=== PATIENT | male | born 1945 | race Caucasian/White ===

== ENCOUNTER 2021-07-20 15:22 | Outpatient (CLI) | payer MEDICARE, SELFPAY ==
--- NOTE | ~2021-07-20 | US_ITS ---
EXAMINATION: US renal BI EXAM DATE: 07/20/2021 15:55 INDICATION: N18.3 - Chronic kidney disease, stage 3 (moderate) CKD STAGE 3 . TECHNIQUE: Multiple grayscale and Doppler images of the kidneys were obtained (by a technologist who performed the scan) and subsequently reviewed. Comparison is made to prior examination from 08/29/2012 . FINDINGS: Right kidney: There is normal contour and echogenicity. It measures 10.2 x 4.6 x 4.3 centimeters. T here are no focal renal lesions identified. There is no hydronephrosis. Left kidney: There is normal contour and echogenicity. It measures 10.3 x 5.0 x 4.7 centimeters. Th ere are no focal renal lesions identified. There is no hydronephrosis. Bladder unremarkable. Prostate measures 4.7 x 4.1 x 4.7 cm, mild to moderately enlarged IMPRESSION: 1. Sonographically unremarkable kidneys. 2. Prostatomegaly. Reviewed, dictated and finalized at location B.
== END 2021-07-20 15:23 | disposition home or self-care (01) ==
LOC: ANHIMG 15:26
PROVIDERS: PCP Family Medicine; Visit Provider Family Medicine
DX: N18.30 Chronic kidney disease, stage 3 unspecified (principal); N40.0 Benign prostatic hyperplasia without lower urinary tract symptoms
CPT/HCPCS: 76775

== ENCOUNTER 2022-02-12 14:29 | Outpatient (CLI) | payer MEDICARE, SELFPAY ==
--- NOTE | ~2022-02-12 | XR_ITS ---
EXAMINATION: XR chest 2V DATE: 02/12/2022 14:49 INDICATION: Chronic cough. TECHNIQUE: Frontal and lateral views of the chest were obtained. COMPARISON: Chest 2 views 06/24/2015 FINDINGS: A calcified right lung nodule is consistent with old granulomatous disease. No pleural effu antonio or pneumothorax. The heart size is normal. There are changes of heart valve replacement. There i s a suture anchor overlying left shoulder. IMPRESSION: 1. No acute cardiopulmonary disease. Reviewed, dictated and finalized at location B.
== END 2022-02-12 14:30 | disposition home or self-care (01) ==
PROVIDERS: PCP Family Medicine; Visit Provider Physician Assistant Medical
DX: R05.3 Chronic cough (principal); Z95.2 Presence of prosthetic heart valve
CPT/HCPCS: 71046

== ENCOUNTER 2022-06-06 14:09 | Outpatient (CLI) | payer MEDICARE, SELFPAY | END 2022-06-06 14:10 | disposition home or self-care (01) | PROVIDERS: PCP Family Medicine; Visit Provider Internal Medicine Critical Care Medicine | DX: R05.3 Chronic cough (principal) | CPT/HCPCS: 87015; 87070; 87102; 87106; 87107; 87116; 87205; 87206 ==

== ENCOUNTER 2022-06-07 12:08 | Outpatient (CLI) | payer MEDICARE, SELFPAY | END 2022-06-07 12:09 | disposition home or self-care (01) | LOC: ANHLAB 12:11 | PROVIDERS: PCP Family Medicine; Visit Provider Internal Medicine Critical Care Medicine | DX: R05.3 Chronic cough (principal) | CPT/HCPCS: 87070; 87205 ==

== ENCOUNTER 2022-06-08 11:49 | Outpatient (CLI) | payer MEDICARE, SELFPAY | END 2022-06-08 11:50 | disposition home or self-care (01) | LOC: ANHLAB 11:52 | PROVIDERS: PCP Family Medicine; Visit Provider Internal Medicine Critical Care Medicine | DX: R05.3 Chronic cough (principal) | CPT/HCPCS: 87070; 87205 ==

== ENCOUNTER 2022-06-25 12:21 | Outpatient (CLI) | payer MEDICARE, SELFPAY ==
--- NOTE | 2022-06-25 14:36 | WPDPFTINT ---
PFT Procedure Performed PFT Procedure Performed Spirometry with Pre/Post Bronchodilator Plethysmography (Lung Vol) Diffusing Cap (DLCO) Flow Vol Loop PFT Interpretation This is a pulmonary function test with pre and post-bronchodilator spirometry, plethysmography and diffusing capacity. The test was performed and results interpreted in accordance with the 2019 and 2005 ATS/ERS Task Force guidelines respectively using the Global Lung Function Initiative-2012 reference equations. Patient demonstrated good effort and cooperation. Reproducibility criteria were met. The quality of the pre bronchodilator spirometry maneuver was Grade A and post bronchodilator spirometry maneuver was Grade A. Findings: Spirometry: The contour the inspiratory and expiratory flow tracing are normal. The pre bronchodilator FVC is 3.45 L, 90% predicted. The pre bronchodilator FEV1 is 2.64 L, 93% predicted. The pre bronchodilator FEV1: FVC ratio is 77%. The post bronchodilator FVC is 3.55 L, representing a 3% increase. The post bronchodilator FEV1 is 2.58 L, representing a 2% decrease. The post bronchodilator FEV1: FVC ratio 73%. Plethysmography: The total lung capacity is 6.64 L, 97% predicted. The functional residual capacity is 3.93 L, 107% predicted. The residual volume is 2.97 L, 116% predicted. Diffusing capacity: The diffusion capacity unadjusted for hemoglobin and carboxyhemoglobin is 17.3, 72% predicted. The diffusing capacity adjusted for alveolar volume is 3.34, 89% predicted. Impression: The spirometry is normal without evidence of an obstructive abnormality. There is no significant improvement after inhaling a single dose of albuterol. The lung volumes are normal. The diffusing capacity is normal. There are no prior studies for comparison
== END 2022-06-25 12:22 | disposition home or self-care (01) ==
PROVIDERS: PCP Family Medicine; Visit Provider Internal Medicine Critical Care Medicine
DX: R05.3 Chronic cough (principal)
CPT/HCPCS: 94060; 94726; 94729

== ENCOUNTER 2022-06-25 12:27 | Outpatient (CLI) | payer MEDICARE, SELFPAY ==
--- NOTE | ~2022-06-25 | CT_ITS ---
EXAMINATION:CT diagnostic chest wo con DATE: 06/25/2022 13:48 INDICATION: Chronic cough. TECHNIQUE: Computed tomography (CT) of the chest was performed without intravenous contrast. Automate d exposure control and iterative reconstruction technique were employed. The dose-length product (DLP ) was 192.25 mGy-cm. COMPARISON: Chest CT 03/18/2014 FINDINGS: There is mild scarring at the lung apices. Calcified right lung nodules and calcified right hilar and mediastinal lymph nodes are consistent with old granulomas disc disease. There is bronchie ctasis in lingula. There is a pneumatocele in right lower lobe. There is mild scarring in the lingula . There are peripheral septal thickening in the right middle lobe and right lower lobe. There is a st able 8 mm nodule in right middle lobe, likely benign. There are a few scattered nodules in the lungs measuring up to 4 mm, likely benign. No honeycombing. No pleural effusion. The heart size is normal. There are changes of aortic valve replacement. There are coronary artery calcifications. No pericardi al effusion. There is ectasia of ascending aorta measuring 4.0 cm. Calcifications in the spleen are c onsistent with old granulomatous disease. There is mild thoracic spondylosis. IMPRESSION: 1. Mild chronic lung disease in a pattern of usual interstitial pneumonia (UIP) versus nonspecific in terstitial pneumonia (NSIP). Reviewed, dictated and finalized at location A. IMPRESSION: 1. Mild chronic lung disease in a pattern of usual interstitial pneumonia (UIP) versus nonspecific interstitial pneumonia (NSIP).
== END 2022-06-25 12:28 | disposition home or self-care (01) ==
LOC: ANHIMG 12:29
PROVIDERS: PCP Family Medicine; Visit Provider Internal Medicine Critical Care Medicine
DX: R05.3 Chronic cough (principal); J98.4 Other disorders of lung
CPT/HCPCS: 71250; 94060; 94726; 94729

== ENCOUNTER 2022-08-14 08:45 | Outpatient (CLI) | payer MEDICARE, SELFPAY ==
--- NOTE | ~2022-08-14 | XR_ITS ---
EXAMINATION: XR barium swallow modified DATE: 08/14/2022 10:39 INDICATION: Chronic cough TECHNIQUE: Modified barium esophagram was performed by myself who administered fluoroscopy, in conju nction with speech pathologist who administered barium in varying consistencies as per speech patholo gist documentation. This was recorded on tape. A single fluoroscopic spot image was recorded. Fluoros copy exposure time was 1.0 minutes. The DAP for this procedure was 1.084 Gycm2. FINDINGS: Oral stage: Adequate function. Pharyngeal phase: Adequate function. Laryngeal penetration: None. Aspiration: None. Laryngeal sensitivity: Present. IMPRESSION: Normal modified esophagram. Please refer to speech pathologist findings and specific feed ing recommendations. Reviewed, dictated and finalized at location A. IMPRESSION: Normal modified esophagram. Please refer to speech pathologist find ings and specific feeding recommendations.
--- NOTE | 2022-08-14 13:05 | REHSTMBS ---
Assessment and note entered by Bharati Chun, [employer] Modified Barium Swallow Evaluation Feeding Type Recommended Oral Food Consistency Regular, Level 7 Liquid Consistency Thin (0) ST Clinical Summary Patient was seen for a Modified Barium Swallow study at the request of his physician. He denies any difficulty swallowing but states that he does cough up yellow phlegm that has chunks in it sometimes. Patient consumed a variety of consistencies today and exhibited no difficulty. He is referred back to his physician for further assessment of his complaints. Thank you for this referral.
== END 2022-08-14 08:46 | disposition home or self-care (01) ==
PROVIDERS: PCP Family Medicine; Visit Provider Internal Medicine Critical Care Medicine
DX: R05.3 Chronic cough (principal)
CPT/HCPCS: 92611

== ENCOUNTER 2023-02-18 00:42 | Day surgery (SDC) | payer MEDICARE, SELFPAY ==
[2023-02-15 13:54] VITALS: BMI 24.8
[2023-02-18] VITALS (12 sets, daily range): BP systolic 120–158; BP diastolic 66–84; PULSE 51–56; RESP 12–20; TEMP 36.4–36.8; O2SAT 97–100; BMI 25.6
--- NOTE | 2023-02-18 08:47 | PM.IMHP ---
H&P: HPI History of Present Illness Date/Time: 02/18/23 08:47 Chief Complaint: Prosthetic valve aortic stenosis Narrative: 77-year-old with aortic stenosis. He already has a bioprosthetic valve which she is progressively tightening. He has dyspnea on exertion and is here today for a DOROTA further evaluation of his prostatic valve aortic stenosis Review of Systems Review of Systems: All systems reviewed & are unremarkable except as noted in HPI and below Constitutional: Constitutional: Denies body ache(s) Eyes: Eyes: Denies blurry vision Cardiovascular: Cardiovascular: Denies chest pain, Reports leg edema and Reports lightheadedness Respiratory: Respiratory: Reports dyspnea on exertion [facility] Past Medical History Medical History Acute on chronic renal insufficiency Atrial fibrillation Benign prostatic hyperplasia BPH (benign prostatic hyperplasia) Chronic cough Chronic renal insufficiency, stage III (moderate) CKD (chronic kidney disease) stage 3, GFR 30-59 ml/min Colon cancer screening Hyperlipidemia Hypertension Left inguinal hernia Peripheral edema Personal history of DVT (deep vein thrombosis) Pneumonia Primary hypertension Prostate cancer screening Pulmonary emboli Ulcerative colitis Ulcerative colitis Venous stasis dermatitis of both lower extremities Vitamin B12 deficiency Surgical History Surgical History History of hernia repair (~08/12/17) History of partial colectomy (~1999) History of prosthetic aortic valve History of repair of left rotator cuff (~11/2013) History of repair of right rotator cuff (~09/01/15) Hx of aortic valve replacement (~09/2014) Hx of blepharoplasty (~2014) left eye Hx of meniscectomy of right knee (~11/2009) Family History Family History Father Diabetes mellitus Cerebrovascular accident Mother Family history of Alzheimer's disease Other Family history of allergic disorder Hypertension Social History Social History Smoking status: Former smoker Tobacco type: cigarettes Second hand tobacco smoke exposure: No Smoking end date: 03/11/1963 Alcohol intake: never Alcohol use details: a glass of wine a month Substance use: never Substance use type: does not use Lack of Transportation: No Lack of Food: Never True Current Housing: I Have Housing Concerned About Future Housing: No Difficulty Paying Gas/Electric Bills: No Difficulty Paying for Meds: No Currently Unemployed: No Education: Bachelor's Degree Difficulty w/ Childcare or Family Care: No Living arrangements: with family Gender identity (if verbalized by the patient): Male Spiritual care concerns: No Meds Home Medications and Allergies Home Medications Medication Instructions Recorded Confirmed Type aspirin 81 mg tablet,delayed 81 mg PO HS 06/09/20 02/18/23 History release (Adult Low Dose Aspirin) rivaroxaban 15 mg tablet (Xarelto) 15 mg PO DAILY #90 tabs 12/15/21 02/18/23 Rx cholecalciferol (vitamin D3) 25 25 mcg PO DAILY 02/12/22 02/18/23 History mcg (1,000 unit) capsule ustekinumab 90 mg/mL subcutaneous 90 mg subcut ONCE 02/12/22 02/15/23 History syringe (Stelara) tamsulosin 0.4 mg capsule See Rx Instructions .Route 05/22/22 02/18/23 Rx .COMPLEX #180 caps metoprolol tartrate 25 mg tablet 12.5 mg PO BID #90 tabs 01/02/23 02/18/23 Rx guaifenesin 600 mg tablet, 600 mg PO BID 02/15/23 02/18/23 History extended release 12 hr (Mucinex) pravastatin 10 mg tablet 10 mg PO HS 02/15/23 02/18/23 History vit C 250 mg-vit E 200 unit-zinc 1 cap PO BID 02/15/23 02/18/23 History ox 12.5 [id number]-zeax capsule (ICaps AREDS2) Allergies Allergy/AdvReac Type Severity Reaction Status Date / Time azathioprine Allergy Unkno
--- NOTE | 2023-02-18 08:49 | WPDMODSED ---
Moderate Sedation Note-Pt Data Patient Data Diagnosis: Bioprostatic aortic valve stenosis Present Complaint: Bioprosthetic aortic valve stenosis Procedure to be performed/Plan: DOROTA Moderate sedation Allergies Allergy/AdvReac Type Severity Reaction Status Date / Time azathioprine Allergy Unknown Unknown Verified 02/18/23 07:35 budesonide Allergy Unknown Unknown Verified 02/18/23 07:35 Sulfa (Sulfonamide Allergy Unknown Unknown Verified 02/18/23 07:35 Antibiotics) sulfur dioxide Allergy Unknown Unknown Verified 02/18/23 07:35 dexamethasone Allergy Unknown Verified 02/18/23 07:35 neomycin Allergy Unknown Verified 02/18/23 07:35 polymyxin B Allergy Unknown Verified 02/18/23 07:35 Home Medications Medication Instructions Recorded Confirmed Type aspirin 81 mg tablet,delayed 81 mg PO HS 06/09/20 02/18/23 History release (Adult Low Dose Aspirin) rivaroxaban 15 mg tablet (Xarelto) 15 mg PO DAILY #90 tabs 12/15/21 02/18/23 Rx cholecalciferol (vitamin D3) 25 25 mcg PO DAILY 02/12/22 02/18/23 History mcg (1,000 unit) capsule ustekinumab 90 mg/mL subcutaneous 90 mg subcut ONCE 02/12/22 02/15/23 History syringe (Stelara) tamsulosin 0.4 mg capsule See Rx Instructions .Route 05/22/22 02/18/23 Rx .COMPLEX #180 caps metoprolol tartrate 25 mg tablet 12.5 mg PO BID #90 tabs 01/02/23 02/18/23 Rx guaifenesin 600 mg tablet, 600 mg PO BID 02/15/23 02/18/23 History extended release 12 hr (Mucinex) pravastatin 10 mg tablet 10 mg PO HS 02/15/23 02/18/23 History vit C 250 mg-vit E 200 unit-zinc 1 cap PO BID 02/15/23 02/18/23 History ox 12.5 ax-nrxfus-aoyryw-zeax capsule (ICaps AREDS2) Sedation/Anesthesia: No previous sedation/anesthesia problems (including family history). [facility] Past Medical History Medical History Acute on chronic renal insufficiency Atrial fibrillation Benign prostatic hyperplasia BPH (benign prostatic hyperplasia) Chronic cough Chronic renal insufficiency, stage III (moderate) CKD (chronic kidney disease) stage 3, GFR 30-59 ml/min Colon cancer screening Hyperlipidemia Hypertension Left inguinal hernia Peripheral edema Personal history of DVT (deep vein thrombosis) Pneumonia Primary hypertension Prostate cancer screening Pulmonary emboli Ulcerative colitis Ulcerative colitis Venous stasis dermatitis of both lower extremities Vitamin B12 deficiency Surgical History Surgical History History of hernia repair (~08/12/17) History of partial colectomy (~1999) History of prosthetic aortic valve History of repair of left rotator cuff (~11/2013) History of repair of right rotator cuff (~09/01/15) Hx of aortic valve replacement (~09/2014) Hx of blepharoplasty (~2014) left eye Hx of meniscectomy of right knee (~11/2009) Family History Family History Father Diabetes mellitus Cerebrovascular accident Mother Family history of Alzheimer's disease Other Family history of allergic disorder Hypertension Social History Social History Smoking status: Former smoker Tobacco type: cigarettes Second hand tobacco smoke exposure: No Smoking end date: 03/11/1963 Alcohol intake: never Alcohol use details: a glass of wine a month Substance use: never Substance use type: does not use Lack of Transportation: No Lack of Food: Never True Current Housing: I Have Housing Concerned About Future Housing: No Difficulty Paying Gas/Electric Bills: No Difficulty Paying for Meds: No Currently Unemployed: No Education: Bachelor's Degree Difficulty w/ Childcare or Family Care: No Living arrangements: with family Gender identity (if verbalized by the patient): Male Spiritual care concerns: No Mod Sed Physical Exam Physical Exam Pre Pro
--- NOTE | 2023-02-18 09:17 | WPDTEECHO ---
DOROTA TransEsophageal Echocardiogram Date of procedure: 02/18/23 Procedure Type: 1. Multiplanar transesophageal echocardiography with color flow and pulse wave Doppler 2. moderate sedation Diagnosis: Bioprosthetic aortic valve stenosis Indications: About prosthetic aortic valve stenosis Image Quality: Good Findings: After discussing the risks, benefits alternatives to procedure patient agreeable via verbal and written informed consent. Risks discussed included esophageal rupture perforation, adverse reaction anesthesia, , bleeding, pain, infection, sore throat. After establishing continuous telemetry monitoring, pulse oxygenation and serial blood pressure assessments, time-out was taken procedure was started. Procedure start time 8:58 a.m. Procedure stop time 9:15 a.m. Complications: None Blood loss: None A total of 50 mcg of fentanyl and 4 mg of Versed were given in divided dosages. Medications were administered and patient was monitored by Grazyna Dixon RN Findings: Normal left ventricular size and function with ejection fraction of 65-70%. Mitral valve appears normal with mild mitral regurgitation. Left atrial appendage is normal with a pulse-wave velocities of 60 centimeters/second. Tricuspid valve is normal with mild tricuspid regurgitation. Pulmonic valve is normal with trivial pulmonic insufficiency. Mild to moderate left atrial enlargement. Normal right atrial size. Normal right ventricular size and function. No pericardial effusion. Mild aortic root dilatation measured at 3.9 cm at the sinus of Valsalva. Doppler sec aortic valve does show some degenerative changes but overall the leaflets remained fairly pliable. Planimetry urged aortic valve area 0.9 centimeter squared, 0.8 centimeter squared 1.0 centimeter squared 1.1 centimeter squared with an average aortic valve area of 0.95 cm2 with trivial aortic insufficiency. Conclusions: 1. Preserved left ventricular systolic function ejection fraction 65-70% 2. Moderate to severe bioprosthetic aortic valve stenosis measured at 0.95 centimeter squared (averaged) 3. Mild mitral regurgitation, tricuspid regurgitation 4. Left atrial enlargement 5. 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 moderate sedation
--- NOTE | 2023-02-18 13:37 | SUR.PHASEII ---
1052 Patient was discharged via wheelchair in stable condition to private vehicle with driving. VSS. Patient had no complaints. He drank fluids, urinated and ambulated with out symptoms prior to discharge. IV site care reviewed as well as discharge instructions. He will contact Dr. Feliciano's office ([facility]) for a follow up and to be set up with the valve clinic at [place]. Patient and his verbalized understanding of discharge instructions and follow up plan of care/treatment and had no further questions.
== END 2023-02-18 10:52 | disposition home or self-care (01) ==
PROVIDERS: PCP Family Medicine; Visit Provider Internal Medicine Cardiovascular Disease
PROC: (CPT 93312; principal; 2023-02-18 08:30)
DX: T82.857A Stenosis of other cardiac prosthetic devices, implants and grafts, initial encounter (principal); Y83.8 Other surgical procedures as the cause of abnormal reaction of the patient, or of later complication, without mention of misadventure at the time of the procedure; I08.1 Rheumatic disorders of both mitral and tricuspid valves; I48.91 Unspecified atrial fibrillation; I12.9 Hypertensive chronic kidney disease with stage 1 through stage 4 chronic kidney disease, or unspecified chronic kidney disease; N18.30 Chronic kidney disease, stage 3 unspecified; E78.5 Hyperlipidemia, unspecified; N40.0 Benign prostatic hyperplasia without lower urinary tract symptoms; Z86.718 Personal history of other venous thrombosis and embolism; Z86.711 Personal history of pulmonary embolism; Z79.01 Long term (current) use of anticoagulants; Z79.82 Long term (current) use of aspirin; Z90.49 Acquired absence of other specified parts of digestive tract; Z87.891 Personal history of nicotine dependence
CPT/HCPCS: 93312; 93320; 93325; J2250; J2310; J3010; J7030

== ENCOUNTER 2023-05-15 13:55 | Outpatient (CLI) | payer MEDICARE, SELFPAY ==
[2023-05-15 15:50] LABS: Hematocrit 41.7 % (42.0-52.0); Hemoglobin 13.6 g/dL (14.0-18.0); Mean Corpuscular HGB Conc 32.6 g/dl (32-36); Mean Corpuscular Hemoglobin 31.9 pg (26-34); Mean Corpuscular Volume 97.7 fl (80-100); Mean Platelet Volume 10.8 fl (7.4-10.4); Platelet Count Result 193 k/mm3 (150-375); Red Blood Count 4.27 M/mm3 (4.6-6.20); White Blood Count 8.7 K/mm3 (4.5-10.0)
[2023-05-15 16:03] LABS: Anion Gap 8 mmol/L (8-16); Blood Urea Nitrogen 40 mg/dL (9-20); Calcium 9.1 mg/dL (8.4-10.2); Carbon Dioxide 26 mmol/L (22-30); Chloride 105 mmol/L (98-107); Estimated Glomerular Filt Rate 49; Glucose 93 mg/dL (65-110); Potassium 4.4 mmol/L (3.4-5.0); Sodium 139 mmol/L (137-145)
== END 2023-05-15 13:56 | disposition home or self-care (01) ==
PROVIDERS: PCP Family Medicine; Referring Provider Internal Medicine Cardiovascular Disease; Visit Provider Internal Medicine Interventional Cardiology
DX: Z01.818 Encounter for other preprocedural examination (principal)
CPT/HCPCS: 36415; 80048; 85027

== ENCOUNTER 2024-04-28 10:04 | Outpatient (CLI) | payer MEDICARE, SELFPAY ==
--- NOTE | 2024-04-29 08:55 | WPDSIXMINUTE ---
Six Minute Walk Procedure Procedure Performed Pulmonary Stress Test (6 min walk) Six Minute Walk Six Minute Walk: This is a 6 minute walk test. The test was performed and interpreted in accordance with the 2014 ERS/ATS task force guidelines. Findings: The patient's resting room air oxygen saturation measured by pulse oximetry was 93% and heart rate was 64 bpm. Patient ambulated for 335 meters and oxygen saturation remained 89 to 96%. Heart rate at the end of the study was 95 bpm. The patient did not qualify for supplemental oxygen at rest or with ambulation. There are no prior studies for comparison.
--- NOTE | 2024-04-29 08:56 | WPDPFTINT ---
PFT Procedure Performed PFT Procedure Performed Spirometry with Pre/Post Bronchodilator Plethysmography (Lung Vol) Diffusing Cap (DLCO) Flow Vol Loop PFT Interpretation This is a pulmonary function test with pre and post-bronchodilator spirometry, plethysmography and diffusing capacity. The test was performed and results interpreted in accordance with the 2019 and 2005 ATS/ERS Task Force guidelines respectively using the Global Lung Function Initiative-2012 reference equations. Patient demonstrated good effort and cooperation. Reproducibility criteria were met. The quality of the pre bronchodilator spirometry maneuver was Grade A and post bronchodilator spirometry maneuver was Grade A. Findings: Spirometry: The contour the inspiratory and expiratory flow tracing are normal. The pre bronchodilator FVC is 3.42 L, 90% predicted. The pre bronchodilator FEV1 is 2.64 L, 94% predicted. The pre bronchodilator FEV1: FVC ratio is 77%. The post bronchodilator FVC is 3.46 L, representing 1% increase. The post bronchodilator FEV1 is 2.70 L, representing a 2% increase. The post bronchodilator FEV1: FVC ratio 78%. Plethysmography: The total lung capacity is 5.76 L, 84% predicted. The functional residual capacity is 2.74 L, 74% predicted. The residual volume is 2.12 L, 82% predicted. Diffusing capacity: The diffusing capacity unadjusted for hemoglobin and carboxyhemoglobin is 18.4, 78% predicted. The diffusing capacity adjusted for alveolar volume is 3.34, 90% predicted. In comparison to previous pulmonary function testing on 06/25/2022 the post bronchodilator FVC is unchanged from 3.55 L to 3.46 L. The post bronchodilator FEV1 is unchanged from 2.58 L to 2.70 L. The total lung capacity is decreased from 6.64 L to 5.76 L. The functional residual capacity is decreased from 3.93 L to 2.74 L. The residual volume is decreased from 2.97 L to 2.12 L. The diffusing capacity unadjusted for hemoglobin and carboxyhemoglobin is unchanged from 17.3 to 18.4. The diffusing capacity adjusted for alveolar volume is unchanged from 3.34 to 3.34. Impression: The spirometry is normal without evidence of an obstructive abnormality. There is no significant improvement after inhaling a single dose of albuterol. The lung volumes are normal. The diffusing capacity is normal. In comparison to previous pulmonary function testing on 06/25/2022 there has been a greater than anticipated time dependent decrease in the total lung capacity, functional residual capacity and residual volume with no significant change in the FVC, FEV1 or diffusing capacity. Clinical correlation is recommended.
== END 2024-04-28 10:05 | disposition home or self-care (01) ==
LOC: ANHPFT 10:05
PROVIDERS: PCP Family Medicine; Visit Provider Internal Medicine Critical Care Medicine
DX: J84.9 Interstitial pulmonary disease, unspecified (principal)
CPT/HCPCS: 94060; 94618; 94726; 94729

== ENCOUNTER 2024-05-01 13:57 | Outpatient (CLI) | payer MEDICARE, SELFPAY ==
--- NOTE | ~2024-05-01 | CT_ITS ---
EXAMINATION:CT chest high resolution wo co DATE: 05/01/2024 14:20 INDICATION: Interstitial pulmonary disease, unspecified. TECHNIQUE: Computed tomography (CT) of the chest was performed without intravenous contrast. Automate d exposure control and iterative reconstruction technique were employed. The dose-length product (DLP ) was 218.54 mGy-cm. COMPARISON: Chest CT 06/25/2022 FINDINGS: There is mild scarring at the lung apices. There is bronchiectasis in the right middle lobe and lingula. There is a pneumatocele in right lower lobe. Calcified pulmonary nodules and calcified hilar mediastinal lymph nodes are consistent with old granulomatous disease. There is peripheral sept al thickening in the lungs with a peripheral predominance, predominantly on the right associated with mild groundglass opacities. There are scattered nodules in the lungs measuring up to 7 mm in right m iddle lobe without change, likely benign. There is no honeycombing. No pleural effusion. The heart si ze is normal. There are coronary artery calcifications. There is ectasia of ascending aorta measuring 4.0 cm. There are changes of aortic valve replacement. No pericardial effusion. There is an abdomina l ventral hernia containing fat. There are bridging endplate osteophytes at multiple levels in the sp ine, consistent with diffuse idiopathic skeletal hyperostosis (DISH). There is severe lumbar spondylo sis. IMPRESSION: 1. Stable mild chronic lung disease in a pattern of usual interstitial pneumonia (UIP) versus nonspec ific interstitial pneumonia (NSIP). Reviewed, dictated and finalized at location A. IMPRESSION: 1. Stable mild chronic lung disease in a pattern of usual interstitial pneumoni a (UIP) versus nonspecific interstitial pneumonia (NSIP).
== END 2024-05-01 13:58 | disposition home or self-care (01) ==
PROVIDERS: PCP Family Medicine; Visit Provider Internal Medicine Critical Care Medicine
DX: J84.9 Interstitial pulmonary disease, unspecified (principal)
CPT/HCPCS: 71250

== ENCOUNTER 2024-06-24 10:32 | Outpatient (CLI) | payer MEDICARE, SELFPAY ==
--- NOTE | ~2024-06-24 | XR_ITS ---
AP view of the pelvis and AP view of the left hip Clinical history: Pain Findings: No acute fracture or dislocation is seen. Osseous alignment is anatomic. Bilateral hip and SI joint spaces are preserved. Soft tissues are unremarkable. Impression: No significant abnormality is seen. Reviewed, dictated and finalized at [facility]. Impression: No significant abnormality is seen.
--- NOTE | ~2024-06-24 | XR_ITS ---
Lumbosacral Spine: AP and lateral views Clinical History: Pain Findings: The normal lordotic curve is maintained. No fracture or subluxation evident. There is sever e degenerative disc narrowing at L2-L3, L3-L4, L4-L5. There is advanced facet arthropathy throughout the lumbar spine. There is moderate degenerative disc narrowing at L1-L2. The sacroiliac joints are n ormally outlined. Impression: Advanced degenerative spondylosis, as above. Reviewed, dictated and finalized at location M. Impression: Advanced degenerative spondylosis, as above.
== END 2024-06-24 10:33 | disposition home or self-care (01) ==
LOC: ANHIMG 10:35
PROVIDERS: PCP Family Medicine; Visit Provider Student in an Organized Health Care Education/Training Program
DX: M47.817 Spondylosis without myelopathy or radiculopathy, lumbosacral region (principal); M25.552 Pain in left hip
CPT/HCPCS: 72100; 73501

== ENCOUNTER 2024-08-07 12:45 | Outpatient (CLI) | payer MEDICARE, SELFPAY ==
--- NOTE | ~2024-08-07 | MR_ITS ---
MRI of the lumbar spine Clinical History: Back pain Technique: Axial T2-weighted images, and sagittal T1-weighted, T2-weighted, and T2 fat-sat images wer e acquired. Findings: No fracture seen. There is minimal grade 1 retrolisthesis of L3 over L4. No suspicious bone marrow signal abnormality seen. At L1-L2, there is advanced degenerative disc 9. There is disc bulge and severe facet arthropathy, wi th moderate central canal stenosis. There is minimal bilateral neural foraminal narrowing. At L2-L3, there is severe degenerative disc 9. Disc bulge and severe facet arthropathy result in ruma re spinal canal stenosis/thecal sac compression. There is mild to moderate bilateral neural foraminal narrowing. At L3-L4, there is severe degenerative disc narrowing. Diffuse disc bulge/protrusion and severe facet arthropathy result in severe spinal canal stenosis/thecal sac compression. There is moderate moderat e left neural foraminal narrowing, and severe right neural foraminal narrowing. At L4-L5, there is advanced degenerative disc narrowing. Diffuse disc bulge and advanced facet arthro indra result in severe spinal canal stenosis/thecal sac compression. There is severe left neural fora anabel narrowing. Right neural foramen preserved. At L5-S1, there is no disc bulge or herniation. There is advanced facet arthropathy. No spinal canal stenosis or neural foraminal narrowing. Paravertebral soft tissues are unremarkable. 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 There is multilevel severe sp inal canal stenosis and severe neural foraminal narrowing. Reviewed, dictated and finalized at [facility]. 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 There i s multilevel severe spinal canal stenosis and severe neural foraminal narrowing .
== END 2024-08-07 12:46 | disposition home or self-care (01) ==
LOC: GOSHIMG 12:46
PROVIDERS: PCP Family Medicine
DX: M51.369 Other intervertebral disc degeneration, lumbar region without mention of lumbar back pain or lower extremity pain (principal); M47.896 Other spondylosis, lumbar region
CPT/HCPCS: 72148

== ENCOUNTER 2024-10-30 09:32 | Emergency (ER) | payer MEDICARE, SELFPAY ==
--- NOTE | ~2024-10-30 | CT_ITS ---
EXAMINATION: 1. CT facial & cervical spine wo DATE: 10/30/2024 09:55 INDICATION: Fall with head injury and right eyebrow laceration. TECHNIQUE: 1. Computed tomography (CT) of the maxillofacial region and of the cervical spine were performed with out intravenous contrast. Sagittal and coronal reconstructions of both regions were obtained. Automat ed exposure control and iterative reconstruction technique were employed. The dose-length product was 233.83 mGy-cm. COMPARISON: None. FINDINGS: Maxillofacial CT: Laceration along the right supraorbital rim with tiny focus of subcutaneous gas. No maxillofacial fra ctures. Specifically the nasal bones, mandible, zygomatic arches and frost of the orbits and paranasa l sinuses are all intact. Likely developmental mild rightward bowing of the nasal septum which parall els the contours of the turbinates with no fracture. Paranasal sinuses are clear as are the bilateral ostiomeatal units. Orbits are normal. Cervical spine CT: 2 mm retrolisthesis C4 on C5 and C5 on C6. Vertebral body heights are normal. No acute fracture. Ther e is solid osseous fusion across the right C2-C3 and left C3-C4 facet joints. Severe disc height loss with prominent degenerative endplate changes at C4-C5 and C5-C6 and C6-C7. Moderate disc height loss at C3-C4 and mild disc height loss at C2-C3. Posterior disc osteophyte complexes resulting in mild t o moderate central canal stenosis at C4-C5 and C5-C6 and mild central canal stenosis at C6-C7. There is multilevel moderate right-sided and moderate to severe left-sided cervical and upper thoracic face t osteoarthritis. There is moderate neural foraminal stenosis on the right at C4-C5 through C6-C7 and on the left at C4-C5. Mild stenosis at several additional bilateral cervical neural foramina. Mastoi d air cells and middle ear cavities are clear. Cervical soft tissues are unremarkable. Mild biapical pleural-parenchymal scarring. IMPRESSION: 1. No maxillofacial fractures. 2. Severe cervical spondylosis with no acute osseous abnormality. Reviewed, dictated and finalized at location B. [employer] [facility]
--- NOTE | ~2024-10-30 | CT_ITS ---
EXAMINATION: CT brain wo con DATE: 10/30/2024 09:55 INDICATION: Anticoagulated patient post fall with head injury TECHNIQUE: Computed tomography (CT) of the head was performed without intravenous contrast. Sagittal and coronal reconstructions were performed. The mA was adjusted according to patient size. Iterative reconstruction technique was employed. The dose-length product was 605.33 mGy-cm. COMPARISON: head CT dated 01/30/2019 FINDINGS: No fracture. No acute intracranial hemorrhage, acute infarction or abnormal extra axial fluid collect ion. Small old lacunar infarct at the bilateral caudate nuclei. There is moderate scattered white mat ter hypoattenuation consistent with chronic small vessel ischemic disease. Symmetric prominence of th e sulci and ventricles consistent with mild to moderate age-appropriate diffuse cerebral volume loss. No mass/mass effect. The orbits, paranasal sinuses and mastoid air cells are normal. IMPRESSION: 1. No fracture or acute intracranial process. 2. 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 3. Age-related changes including mild to moderate diffuse volume loss and moderate scattered white ma tter hypoattenuation consistent with chronic small vessel ischemic disease. Reviewed, dictated and finalized at location B. [facility]ING INST[employer]ER IMPRESSION: 1. No fracture or acute intracranial process. 2. 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 3. Age-related changes including mild to moderate diffuse volume loss and moder ate scattered white matter hypoattenuation consistent with chronic small vessel ischemic disease.
[2024-10-30 09:33] VITALS: BP 141/61; PULSE 66; RESP 20; TEMP 36.4; O2SAT 99
--- NOTE | 2024-10-30 11:38 | ED_ITS ---
HPI - Fall General Chief Complaint: Fall Stated Complaint: fall, HI Time Seen by Provider: 10/30/24 10:56 History of Present Illness HPI Narrative: 79-year-old male presents to emergency department via EMS for a ground level fall that occurred prior to arrival. Patient states he was at [employer] when he tripped on the curb and fell. He hit his right eyebrow on the ground and his right elbow. He did not lose consciousness. He is anticoagulated on Xarelto. He denies neck pain, back pain or other injuries acquired. Last Tdap unknown. Related Data Home Medications ?Medication ?Instructions ?Recorded ?Confirmed ?Last Taken ?Type aspirin 81 mg tablet,delayed 81 mg PO HS 06/09/20 10/05/24 02/17/23 History release (Adult Low Dose Aspirin) vedolizumab 300 mg intravenous 300 mg IV ONCE 06/20/23 10/05/24 Unknown History solution (Entyvio) vit C 250 mg-vit E 90 mg-zinc 40 1 tablet PO DAILY 08/28/23 10/05/24 Unknown History mg-copper 1 [id number] capsule (PreserVision AREDS-2) diphenhydramine HCl 25 mg capsule 25 mg PO QHS PRN 02/27/24 10/05/24 Unknown History (Benadryl) cholecalciferol (vitamin D3) 25 25 mcg PO DAILY 03/02/24 10/05/24 Unknown History mcg (1,000 unit) tablet (Vitamin D3) amiodarone 200 mg tablet 200 mg PO BID 10/05/24 10/05/24 Unknown History amlodipine 5 mg tablet 5 mg PO DAILY 10/05/24 10/05/24 Unknown History Allergies Allergy/AdvReac Type Severity Reaction Status Date / Time azathioprine Allergy Unknown Unknown Verified 10/05/24 13:48 budesonide Allergy Unknown Unknown Verified 10/05/24 13:48 Sulfa (Sulfonamide Allergy Unknown Unknown Verified 10/05/24 13:48 Antibiotics) sulfur dioxide Allergy Unknown Unknown Verified 10/05/24 13:48 dexamethasone Allergy Unknown Verified 10/05/24 13:48 neomycin Allergy Unknown Verified 10/05/24 13:48 polymyxin B Allergy Unknown Verified 10/05/24 13:48 Review of Systems Review of Systems: All systems reviewed & are unremarkable except as noted in HPI and below PMFSH Past Medical History Medical History Prosthetic aortic valve stenosis Vitamin B12 deficiency Myalgia Chronic renal insufficiency, stage III (moderate) Hyperlipidemia BPH (benign prostatic hyperplasia) Venous stasis dermatitis of both lower extremities Personal history of DVT (deep vein thrombosis) Primary hypertension Benign prostatic hyperplasia Atrial fibrillation Hypertension Ulcerative colitis Pulmonary emboli Pneumonia Left inguinal hernia Surgical History Surgical History History of prosthetic aortic valve Hx of meniscectomy of right knee (~11/2009) History of partial colectomy (~1999) History of repair of left rotator cuff (~11/2013) Hx of aortic valve replacement (~09/2014) Hx of blepharoplasty (~2014) left eye History of repair of right rotator cuff (~09/01/15) History of hernia repair (~08/12/17) Family History Family History Father Diabetes mellitus Cerebrovascular accident Mother Family history of Alzheimer's disease Other Family history of allergic disorder Hypertension Social History Social History Smoking status: Former smoker Tobacco type: cigarettes Second hand tobacco smoke exposure: No Smoking end date: 03/11/1963 Alcohol intake: never Alcohol use details: a glass of wine a month Substance use: never Substance use type: does not use Do You Feel Safe in your Home?: Yes Lack of Transportation: No Lack of Food: Never True Current Housing: I Have Housing Concerned About Future Housing: No Difficulty Paying Gas/Electric Bills: No Difficulty Paying for Meds: No Currently Unemployed: No Education: Bachelor's Degree Difficulty w/ Childcare or Family Care: No Living arrangements: with family Gender identity (if verbalized by the patient): Male Spiritual care concerns: No Exam Narrative: GENERAL: Well-appearing, well-nourished, and in no acute distress. HEAD: Normocephalic, atraumatic. EYES: PERRLA and EOMI. ENT: Nares clear, no rhinorrhea or epistaxis. Mucous membranes moist. NECK and BACK: No midline cervical spinous tenderness, crepitus, step-offs or deformities CHEST: Clear to auscultation. No respiratory distress. HEART: Regular rate and rhythm. No murmur heard. Normal peripheral pulses. ABDOMEN: Soft, nontender, nondistended, normal active bowel sounds. EXTREMITIES: Normal range of motion. No edema. Ecchymosis to right elbow and left forearm with no tenderness and intact distal pulses. No tenderness to upper lower extremities. SKIN: 2 cm linear laceration to the right eyebrow, bleeding controlled, no deep structures or foreign bodies visualized. 3 cm skin tear to the right elbow with no deep structures, foreign bodies visualized, bleeding controlled, full active and passive range of motion of elbow with no bony tenderness. NEURO: No focal deficits. Alert and oriented x3 Course Vital Signs Vital signs: Vital Signs Temperature 97.6 F 10/30/24 09:33 Pulse Rate 66 10/30/24 09:33 Respiratory Rate 20 10/30/24 09:33 Blood Pressure 141/61 H 10/30/24 09:33 Pulse Oximetry 99 10/30/24 09:33 Oxygen Delivery Room Air 10/30/24 09:33 Temperature 97.6 F 10/30/24 09:33 Pulse Rate 66 10/30/24 09:33 Respiratory Rate 20 10/30/24 09:33 Blood Pressure 141/61 H 10/30/24 09:33 Pulse Oximetry 99 10/30/24 09:33 Oxygen Delivery Room Air 10/30/24 09:33 MDM - Fall MDM Narrative Medical decision making narrative: 79-year-old male presents emergency department for ground level mechanical fall that occurred prior to arrival. Patient did hit his head but did not lose consciousness. He vitals are stable. Exam significant for the above. Bleeding controlled. No deep structures or foreign bodies visualized lacerations. No focal deficits. No bony tenderness throughout. CT brain shows no acute intracranial findings. CT facial bones and cervical spine show no acute findings. Patient is updated on workup. Laceration is irrigated with normal saline. Laceration to the right eyebrow was closed with glue with good approximation and no complications. Skin tear to the right elbow was closed with Steri-Strips with good approximation no complications. Wound care and return precautions discussed. He is advised follow-up with his PCP. Tetanus updated. He and his are agreeable with the plan verbalized understanding. Discharged in stable condition. Discharge Plan Discharge Clinical Impression: Fall, Laceration, Contusion Patient Disposition: Home, Self-Care Condition: Stable Instructions: Antibiotic Form, Laceration (ED), Head Injury (ED) Additional Instructions: You were evaluated in the emergency department for a fall. The CT of your head, cervical spine and facial bones show no acute findings as discussed. The laceration to her eyebrow was closed with skin glue and the skin tear to the right elbow was closed with Steri-Strips. The skin glue and Steri-Strips will fall off in a day or 2 which is normal. Please keep the areas clean and dry. Follow-up with your primary care provider. Return to the emergency department if you develop vision changes, focal numbness or weakness, altered mental status, surrounding redness or drainage your wounds or other concerning symp toms. Patient Language: [place] Prescriptions: No Action PreserVision AREDS-2 250-90-40-1 mg capsule 1 tablet PO DAILY Entyvio 300 mg recon soln 300 mg IV ONCE Rx Instructions: administer over 30 mins, every 8 weeks cholecalciferol (vitamin D3) [Vitamin D3] 25 mcg (1,000 unit) tablet 25 mcg PO DAILY allopurinol 100 mg tablet 50 mg PO DAILY Qty: 90 0RF aspirin [Adult Low Dose Aspirin] 81 mg tablet,delayed release (DR/EC) 81 mg PO HS hydrochlorothiazide 25 mg tablet 25 mg PO DAILY Qty: 1 0RF diphenhydramine HCl [Benadryl] 25 mg capsule 25 mg PO QHS PRN amiodarone 200 mg tablet 200 mg PO BID amlodipine 5 mg tablet 5 mg PO DAILY albuterol sulfate [Ventolin HFA] 90 mcg/actuation HFA aerosol inhaler 1 inh inhalation Q8H PRN (Reason: shortness of breath) 90 Days Qty: 8.5 1RF Xarelto 15 mg tablet 15 mg PO DAILY Qty: 90 3RF Rx Instructions: AT SUPPER TIME pravastatin 10 mg tablet See Rx Instructions .ROUTE .COMPLEX Qty: 90 1RF Dose Instruction: Take 1 tablet by mouth once daily Rx Instructions: Take 1 tablet by mouth once daily tamsulosin 0.4 mg capsule See Rx Instructions .ROUTE .COMPLEX Qty: 180 2RF Dose Instruction: TAKE 2 CAPSULES BY MOUTH EVERY DAY Rx Instructions: TAKE 2 CAPSULES BY MOUTH EVERY DAY Follow-up/Referrals: Ning Heredia MD [Primary Care Provider] -
[2024-10-30] MEDS: TETANUS,DIPHTHERIA,AC PERTUSSIS ADULT (0.5 ML) BOOSTRIX IM (11:46)
== END 2024-10-30 12:21 | disposition home or self-care (01) ==
PROVIDERS: Emergency Provider Physician Assistant; PCP Family Medicine
DX: S01.111A Laceration without foreign body of right eyelid and periocular area, initial encounter (principal); S51.011A Laceration without foreign body of right elbow, initial encounter; I12.9 Hypertensive chronic kidney disease with stage 1 through stage 4 chronic kidney disease, or unspecified chronic kidney disease; N18.30 Chronic kidney disease, stage 3 unspecified; E78.5 Hyperlipidemia, unspecified; Z86.718 Personal history of other venous thrombosis and embolism; I48.91 Unspecified atrial fibrillation; N40.0 Benign prostatic hyperplasia without lower urinary tract symptoms; W01.0XXA Fall on same level from slipping, tripping and stumbling without subsequent striking against object, initial encounter; Z23 Encounter for immunization
CPT/HCPCS: 12011; 70450; 70486; 72125; 90715; 99284

== ENCOUNTER 2025-10-25 08:00 | Outpatient (CLI) | payer MEDICARE, SELFPAY ==
--- NOTE | ~2025-10-25 | US_ITS ---
US abdomen limited 10/25/2025 09:11 Indication: Umbilical hernia Procedure: Soft tissue ultrasound of the anterior abdomen Comparison: Ultrasound dated 07/20/2021 Findings: In the right umbilical area in the area of palpable concern there is an oval hypoechoic mass with parallel orientation, mixed posterior attenuation measuring 2.9 x 4.4 x 1.3 cm. There is suggestion of a fascial defect at this level. In the left lower umbilical area in the area secondary of palpable concern there is no discrete mass or fascial defect. Impression: 1: Oval hypoechoic mass in the right periumbilical region in the area of palpable concern measuring up to 4.4 cm with associated fascial defect, likely representing omental fat extending through a hernia. No definite bowel involvement. Consider correlation with CT. Reviewed, dictated and finalized at location O. [facility] SORTER Impression: 1: Oval hypoechoic mass in the right periumbilical region in the area of palpab le concern measuring up to 4.4 cm with associated fascial defect, likely repres enting omental fat extending through a hernia. No definite bowel involvement. C onsider correlation with CT.
== END 2025-10-25 08:01 | disposition home or self-care (01) ==
LOC: GOSHIMG 08:02
PROVIDERS: PCP Internal Medicine Cardiovascular Disease; Referring Provider Internal Medicine Nephrology
DX: K42.9 Umbilical hernia without obstruction or gangrene (principal)
CPT/HCPCS: 76705